=== PATIENT | female | born 1950 | race Caucasian/White ===

== ENCOUNTER 2018-04-10 11:19 | Emergency (ER) | payer OTHER ==
--- OUTSIDE RECORDS SUMMARY | 2018-04-10 11:21 | XMS REPORT | Summary of Care ---
:1950 Author Encounter HQ Naintenishar_iram(MARIA LUZ) [id number] Date(s): 04/17/14 - 04/17/14 [facility] Outpatient Imaging [address] Discharge Disposition: Home Physician Attending: Miguel A Orozco MD Reason for Visit V76.10 - SCRN MAL ALLI BR Problem List No data available for this section Allergies, Adverse Reactions, Alerts No data available for this section Medications No data available for this section Medications Administered During Your Visit No data available for this section Immunizations No data available for this section
--- OUTSIDE RECORDS SUMMARY | 2018-04-10 11:21 | XMS REPORT | Clinical Summary ---
:1950 Author Organization [facility] Address [address] [place] [address] Care Team Providers Name Role Phone Asked, No Pcp Primary Care Provider Unavailable Allergies No Known Allergies Current Medications Prescription Sig. Disp. Refills Start Date End Date Status sotalol (BETAPACE) 80 Take 80 mg by Active MG tablet mouth 2 (two) times a day. denosumab (PROLIA) 60 Inject 60 mg Active mg/mL syringe syringe under the skin every 6 (six) months. calcium carbonate Take 1,200 mg by Active (CALCIUM 600 ORAL) mouth daily. cholecalciferol, Take by mouth. Active vitamin D3, (VITAMIN D3) 5,000 unit tablet sucralfate (CARAFATE) Take 10 mL (1 g 1200 mL 0 12/08/2017 01/07/2018 100 mg/mL suspension total) by mouth 4 (four) times a day with meals and nightly for 30 days. colchicine 0.6 mg Take 0.5 tablets 30 tablet 0 12/08/2017 01/07/2018 tablet (0.3 mg total) by mouth 2 (two) times a day for 30 days. pantoprazole Take 1 tablet 60 tablet 0 12/08/2017 01/07/2018 (PROTONIX) 40 MG EC (40 mg total) by tablet mouth 2 (two) times a day for 30 days. rivaroxaban (XARELTO) Take 1 tablet 30 tablet 0 12/08/2017 01/07/2018 20 mg tablet (20 mg total) by mouth daily for 30 days. rivaroxaban (XARELTO) Take 1 tablet 30 tablet 0 12/09/2017 01/08/2018 20 mg tablet (20 mg total) by mouth daily for 30 days. Active Problems Problem Noted Date PAF (paroxysmal atrial fibrillation) 12/08/2017 Encounters Date Type Specialty Care Team Description 12/08/2017 - Hospital Encounter Cardiology Anoop Oakley MD PAF (paroxysmal 12/09/2017 atrial fibrillation) 12/08/2017 Anesthesia Event Procedural [facility] Myron Galeano MD 12/08/2017 Procedure Pass Procedural Cardiology 12/08/2017 Surgery Procedural Anoop Oakley MD Ep complete ep study Cardiology w ablation pulmonary vein [12134 (CPT)] after 04/09/2017 Family History Medical History Relation Name Comments Heart disease Father Rheumatic fever Father Relation Name Status Comments Father Social History Tobacco Use Types Packs/Day Years Used Date Never Smoker Smokeless Tobacco: Never Used Alcohol Use Drinks/Week oz/Week Comments Yes Rarely Sex Assigned at Date Recorded Not on file Last Filed Vital Signs Vital Sign Reading Time Taken Blood Pressure 91/54 12/09/2017 11:13 AM CDT Pulse 59 12/09/2017 11:13 AM CDT Temperature 36.6 C (97.8 F) 12/09/2017 11:13 AM CDT Respiratory Rate 17 12/09/2017 11:13 AM CDT Oxygen Saturation 92% 12/09/2017 11:13 AM CDT Inhaled Oxygen Concentration - - Weight 75.3 kg (166 lb 1.6 oz) 12/09/2017 4:31 AM CDT Height 172.7 cm (5' 8") 12/08/2017 10:45 AM CDT Body Mass Index 25.26 12/09/2017 4:31 AM CDT Plan of Treatment Not on file Procedures Procedure Name Priority Date/Time Associated Comments Diagnosis MAGNESIUM LEVEL Routine 12/09/2017 4:25 Results for this AM CDT procedure are in the results section. ESTIMATED GFR Routine 12/09/2017 4:25 Results for this AM CDT procedure are in the results section. BASIC METABOLIC PANEL Routine 12/09/2017 4:25 Results for this AM CDT procedure are in the results section. HC COMPLETE BLD COUNT Routine 12/09/2017 4:25 Results for this W/AUTO DIFF AM CDT procedure are in the results section. ESTIMATED GFR Routine 12/08/2017 9:04 Results for this PM CDT procedure are in the results section. BASIC METABOLIC PANEL Routine 12/08/2017 9:04 Results for this PM CDT procedure are in the results section. ECG 12-LEAD STAT 12/08/2017 8:07 Results for this PM CDT procedure are in the results section. EP COMPLETE EP STUDY Routine 12/08/2017 5:52 PAF (paroxysmal Results for this W ABLATION PULMONARY PM CDT atrial procedure are in VEIN fibrillation) the results section. ACTIVATED CLOTTING Routine 12/08/2017 5:46 Results for this TIME PM CDT procedure are in the results section. ACTIVATED CLOTTING Routine 12/08/2017 4:54 Results for this TIME PM CDT procedure are in the results section. ACTIVATED CLOTTING Routine 12/08/2017 4:07 Results for this TIME PM CDT procedure are in the results section. ACTIVATED CLOTTING Routine 12/08/2017 2:53 Results for this TIME PM CDT procedure are in the results section. ACTIVATED CLOTTING Routine 12/08/2017 2:22 Results for this TIME PM CDT procedure are in the results section. ACTIVATED CLOTTING Routine 12/08/2017 2:15 Results for this TIME PM CDT procedure are in the results section. [place] AN ELECTIVE Routine 12/08/2017 1:50 ENDOTRACHEAL AIRWAY PM CDT Procedure Note - Remedios Mora CRNA - 12/08/2017 1:50 PM CDT Airway Date/Time: 12/08/2017 1:40 PM Performed by: EDE WALDROP Authorized by: MYRON LYLES Location: school laboratory technician Urgency: Elective Difficult Airway: No Anesthesiologist: MYRON LYLES Resident/MANAGER MARKETING/AA: EDE WALDROP Performed by: resident/MANAGER MARKETING/AA Preoxygenated with 100% O2: Yes C-spine Precautions Maintained Throughout: Yes Mask Ventilation: Easy mask Final Airway Type: Endotracheal airway Final Endotracheal Airway: ETT Cuffed: Yes Technique Used: Direct laryngoscopy Devices/Methods Used in Placement: Intubating stylet Insertion Site: Oral Blade Type: Guan Laryngoscope Blade/Videolaryngoscope Blade Size: 2 ETT Size (mm): 7.0 Cuff at minimum occlusion pressure: Yes Measured from: Lips ETT to Lips (cm): 21 Placement Verified by: CO2 detection, direct visualization and equal breath sounds Laryngoscopic view: Grade I - full view of glottis Rapid Sequence Induction (RSI): No Modified RSI: No Number of Attempts at Approach: 1 Small lip lac with intubation. Pressure applied TYPE AND SCREEN STAT 12/08/2017 11:12 AM CDT ECG PRE/POST OP Routine 12/08/2017 10:46 AM CDT after 04/09/2017 Results Estimated GFR (12/09/2017 4:25 AM)Only the most recent of2 resultswithin the time period is included. GFR Non Af Amer 55 (A) mL/min/1.73 m2 [facility] DEPARTMENT OF PATHOLOGY AND GENOMIC MEDICINE GFR Af Amer 67 mL/min/1.73 m2 [facility] DEPARTMENT OF Comment: PATHOLOGY AND GENOMIC Chronic kidney disease: <60 mL/min/1.73m2 MEDICINE Kidney failure: <15 mL/min/1.73m2 The estimated GFR is calculated from the IDMS-traceable Modification of Diet in Renal Disease Equation. The accuracy of the calculation is poor when the creatinine is normal. Calculated values >90 mL/min/1.73m2 are not reported. This equation has not been validated in children (<18 years), women, the elderly (>70 years), or ethnic groups other than Caucasians and Americans. Specimen Plasma specimen Performing Organization Address City/State/Zipcode Phone Number [facility] DEPARTMENT OF PATHOLOGY AND [address] [place] [address] [facility] CBC with platelet and differential (12/09/2017 4:25 AM) WBC 5.59 4.50 - 11.00 k/uL [facility] DEPARTMENT OF PATHOLOGY AND GENOMIC MEDICINE RBC 3.50 (L) 4.20 - 5.50 m/uL [facility] DEPARTMENT OF PATHOLOGY AND GENOMIC MEDICINE HGB 11.0 (L) 12.0 - 16.0 g/dL [facility] DEPARTMENT OF PATHOLOGY AND GENOMIC MEDICINE HCT 33.0 (L) 37.0 - 47.0 % [facility] DEPARTMENT OF PATHOLOGY AND GENOMIC MEDICINE MCV 94.3 82.0 - 100.0 fL [facility] DEPARTMENT OF PATHOLOGY AND GENOMIC MEDICINE MCH 31.4 27.0 - 34.0 pg [facility] DEPARTMENT OF PATHOLOGY AND GENOMIC MEDICINE MCHC 33.3 31.0 - 37.0 g/dL [facility] DEPARTMENT OF PATHOLOGY AND GENOMIC MEDICINE RDW - SD 44.0 37.0 - 55.0 fL [facility] DEPARTMENT OF PATHOLOGY AND GENOMIC MEDICINE MPV 11.0 8.8 - 13.2 fL [facility] DEPARTMENT OF PATHOLOGY AND GENOMIC MEDICINE Platelet count 143 (L) 150 - 400 k/uL [facility] DEPARTMENT OF PATHOLOGY AND GENOMIC MEDICINE Nucleated RBC 0.00 /100 WBC [facility] DEPARTMENT OF PATHOLOGY AND GENOMIC MEDICINE Neutrophils 78.6 (H) 39.0 - 69.0 % [facility] DEPARTMENT OF PATHOLOGY AND GENOMIC MEDICINE Lymphocytes 13.6 (L) 25.0 - 45.0 % [facility] DEPARTMENT OF PATHOLOGY AND GENOMIC MEDICINE Monocytes 7.0 0.0 - 10.0 % [facility] DEPARTMENT OF PATHOLOGY AND GENOMIC MEDICINE Eosinophils 0.0 0.0 - 5.0 % [facility] DEPARTMENT OF PATHOLOGY AND GENOMIC MEDICINE Basophils 0.4 0.0 - 1.0 % [facility] DEPARTMENT OF PATHOLOGY AND GENOMIC MEDICINE Immature granulocytes 0.4Comment: 0.0 - 1.0 % [facility] DEPARTMENT OF "Immature PATHOLOGY AND GENOMIC granulocytes" MEDICINE (promyelocytes, myelocytes, metamyelocytes) Specimen Blood Performing Organization Address City/State/Zipcode Phone Number [facility] DEPARTMENT OF PATHOLOGY AND [address] [place] [phone] [facility] MEDICINE Magnesium level (12/09/2017 4:25 AM) Magnesium 1.5 (L) 1.6 - 2.4 mg/dL [facility] DEPARTMENT OF PATHOLOGY AND GENOMIC MEDICINE Specimen Plasma specimen Performing Organization Address City/[facility]/Zipcode Phone Number [facility] DEPARTMENT OF PATHOLOGY AND [address] [place] [id number] [facility] Basic metabolic panel (12/09/2017 4:25 AM)Only the most recent of2 resultswithin the time period is included. Sodium 139 135 - 148 mEq/L [facility] DEPARTMENT OF PATHOLOGY AND GENOMIC MEDICINE Potassium 4.1 3.5 - 5.0 mEq/L [facility] DEPARTMENT OF PATHOLOGY AND GENOMIC MEDICINE Chloride 103 98 - 112 mEq/L [facility] DEPARTMENT OF PATHOLOGY AND GENOMIC MEDICINE CO2 24 24 - 31 mEq/L [facility] DEPARTMENT OF PATHOLOGY AND GENOMIC MEDICINE Anion gap 12 7 - 15 mEq/L [facility] DEPARTMENT OF PATHOLOGY Comment: AND GENOMIC [facility] Starting from November , anion gap calculation no longer incorporates potassium. Please note the change. BUN 15 8 - 23 mg/dL [facility] DEPARTMENT OF PATHOLOGY AND GENOMIC MEDICINE Creatinine 1.0 (H) 0.5 - 0.9 mg/dL [facility] DEPARTMENT OF PATHOLOGY AND GENOMIC MEDICINE Glucose 97 65 - 99 mg/dL [facility] DEPARTMENT OF PATHOLOGY AND GENOMIC MEDICINE Calcium 8.3 (L) 8.8 - 10.2 mg/dL [facility] DEPARTMENT OF PATHOLOGY AND GENOMIC MEDICINE Specimen Plasma specimen Performing Organization Address City/[facility] Phone Number [facility] DEPARTMENT OF PATHOLOGY AND [address] [place] [address] [facility] MEDICINE ECG 12 lead (12/08/2017 8:07 PM) Ventricular rate 60 [facility] Atrial rate 59 [facility] QRSD interval 98 [facility] QT interval 494 [facility] QTC interval 494 [facility] QRS axis 1 7 [facility] T wave axis 258 [facility] EKG impression Sinus bradycardia with AV dissociation and Junctional rhythm- ST & T wave abnormality, consider inferior ischemia-ST & T wave abnormality, consider anterolateral ischemia-Prolonged QT-Abnormal ECG-In automated comparison with ECG of 08-DEC-2017 [facility] 10:46,-Junctional rhythm has replaced Sinus rhythm- Performing Organization Address [facility] Phone Number [facility] [address] [place] [address] Cv electrophysiology procedure (12/08/2017 5:52 PM) Impressions Performed At -Successful pulmonary veins isolation, posterior wall isolation, CTI [facility] ablation -Diffuse scarring seen in the anterior wall, probably related to prior MV surgery. RECOMMENDATIONS: 1- Monitor on telemetry overnight 2- Bedrest for 4 hours after sheaths removal 3- Restart Xarelto tonight 4- Continue sotalol 80mg PO BID Narrative Performed At DATE OF OPERATION: December 08, 2017 [facility] LINER REROLL TENDER: Anoop Oakley MD PREOPERATIVE DIAGNOSES: -Persistent atrial fibrillation -Severe MR s/p MVR -Severe osteoporosis POSTOPERATIVE DIAGNOSES: -Persistent atrial fibrillation -Severe MR s/p MVR -Severe osteoporosis PROCEDURES PERFORMED: -Ultrasound guided vascular access -Arterial line placement -Afib ablation with PVI and extrapulmonary ablation for PWI -CTI ablation -3D mapping -EP study -Stimulation after drug infusion -Intra cardiac echocardiography (ICE) -LV sensing and pacing COMPLICATIONS: None ESTIMATED BLOOD LOSS: <20cc HISTORY OF PRESENT ILLNESS: In brief, this is a 67 years old with past medical history as above, with symptomatic persistent atrial fibrillation refractory to anti-arrhythmics (sotalol) who presents today for atrial fibrillation ablation. PROCEDURE IN DETAIL: Consent was obtained from the patient after a full explanation of the risks and benefits of the procedure. The patient was brought to the electrophysiology lab in the fasting state. The patient was prepared and draped in a sterile fashion. General anesthesia with intratracheal ventilation administered by the anesthesia service was used for the procedure. Esophageal temperature monitoring was performed throughout the case using CIRCA catheter. Patient presented to the EP lab in sinus rhythm. Sheaths were placed using modified Seldinger technique. Three venous sheaths (8Fr, 8Fr and long 9Fr sheath) were placed in the right femoral vein using ultrasound guidance without complication. One 7-[place] venous sheath and one 4Fr arterial sheath were placed in the left femoral vein and artery respectively using ultrasound guidance without complication. Heparin bolus and gtt were given after obtaining vascular access. A intracardiac echocardiography catheter (ICE) was inserted via the 9Fr sheath and advanced into the right atrium and the right ventricle. At baseline, there was no pericardial effusion and normal EF. Using SOUND, the CTI, CS os, fossa, LPVs, RPVs were marked. The left atrium was noted to be moderately enlarged and measured at 5.4cm. The ICE catheter was later used to guide both transseptals and monitor for procedure complications. Next, the RFV 8Fr sheath was upgraded to a medium curl Agilis sheath, through which a SmartTouch SF catheter, DF curve was advanced to the RA, and a Fast Anatomic Map (FAM) was done for the IVC, RA septum, fossa and SVC. A decapolar diagnostic catheter was then advanced into the coronary sinus.After titrating heparin drip to achieve an ACT > 350 sec, transseptal puncture was performed with [place] long needle (requiring RF) using ICE guidance. Left (12 mmHg) atrial pressure was measured to assess intracardiac filling pressures.There were no complications.Following transseptal puncture, Agilis sheath was advanced into the LA, and the ablator was then exchanged to a DF Pentarray catheter. A detailed 3D electroanatomical and voltage map was created while in sinus rhythm in the left atrium using CARTO mapping system. During mapping with Pentarray, rhythm degenerated into afib. External cardioversion was performed however afib recurred shortly after with Pentarray mapping. Diffuse scarring was noted, especially anteriorly. After exchanging Pentarray to the ablation catheter, we proceeded to pulmonary veins isolation while in atrial fibrillation. The left pulmonary veins were circumferentially isolated as a common os using RF ablation. The right pulmonary veins were circumferentially isolated as a common os using RF ablation. Following ablation, a repeat cardioversion was performed at 150J and patient remained in NSR for the rest of the case. Veins were checked and additional lesions were needed on the LSPV posterior roof and RPV posterior dhaval to achieve isolation. Prior to ablation of right sided veins, pacing was performed and right phrenic nerve course was avoided (PN was captured and course avoided from RPVs).30-40 W for 30 sec and impedance drop of 10-15 ohms was targeted in the anterior sites. Posterior sites used 20 W for 8-15 sec.Exit and entrance block was confirmed at all 4 veins. At this time, I repeated voltage map of the LA with the Pentarray, which confirmed severe scarring of the anterior wall and some small, isolated areas of the posterior wall. We then proceeded to posterior wall isolation with roof and floor line between the 2 PVs. Additional lesions were needed in the right inferior posterior quadrant and roof to achieve isolation. There was entrance and exit block to the posterior wall with high output pacing.The left and right pulmonary veins were confirmed to remain isolated. Isuprel infusion up to 20mcg/min did not demonstrate reconnection nor a non-PV trigger.CS burst pacing from 250ms to 180msec during isuprel washout, no afib or organized AT/flutter was induced. Catheters were withdrawn into the RA and a CTI line was performed with bidirectional block confirmed. Transblock conduction time was 180 msec. At this time case was ended. HV interval was measured at 64msec and AH=73ms. VAWCL from the LV was 600ms. VA conduction was midline and decremental. Post-procedure ICE showed no pericardial effusion.At this time, GA was stopped and patient was extubated; No immediate complications. Protamine was given at the end of the procedure.Sheaths were pulled in the lab and patient was transferred to the PACU in a stable condition. Performing Organization Address City/State/Zipcode Phone Number [facility] [address] [place] [address] Activated clotting time (12/08/2017 5:46 PM)Only the most recent of6 resultswithin the time period is included. Activated clotting time 121 96 - 152 sec [facility] DEPARTMENT OF Comment: PATHOLOGY AND GENOMIC Meter ID: [id number] MEDICINE Dairy Manager: Charlee Tessy Performing Organization Address [facility] Phone Number [facility] DEPARTMENT OF PATHOLOGY AND [address] [place] [address] GENOMIC MEDICINE Type and screen (12/08/2017 11:12 AM) ABO grouping O [facility] DEPARTMENT OF PATHOLOGY AND GENOMIC MEDICINE Rh type POS [facility] DEPARTMENT OF PATHOLOGY AND GENOMIC MEDICINE Antibody screen (gel) NEG [facility] DEPARTMENT OF PATHOLOGY AND GENOMIC MEDICINE Specimen Blood Performing Organization Address [facility] Phone Number [facility] DEPARTMENT OF PATHOLOGY AND [address] [place] [address] [facility] MEDICINE ECG Pre/Post Op (12/08/2017 10:46 AM) Ventricular rate 53 [facility] Atrial rate 53 [facility] [place] interval 176 [facility] QRSD interval 100 [facility] QT interval 520 [facility] QTC interval 487 [facility] P axis 1 62 [facility] QRS axis 1 34 [facility] T wave axis 70 [facility] EKG impression Sinus bradycardia-T wave abnormality, consider anterolateral ischemia-Prolonged QT-Abnormal ECG-In automated comparison with ECG of 2017 10:44,-ST no longer depressed in Inferior leads- [facility] 12:03:49 PM Performing Organization Address [facility] Phone Number [facility] [address] [place] [address] after 04/09/2017 Insurance Payer Benefit Plan / Group Subscriber ID Type Phone Address AETNA AETNA PPO OPEN CHOICE xxxxxxxx PPO AETNA MEDICARE AETNA MEDICARE HMO/PPO [facility] xxxxxxxx HMO Home: [id number] [phone] [address]
--- OUTSIDE RECORDS SUMMARY | 2018-04-10 11:21 | XMS REPORT | Continuity of Care Document ---
:1950 Author Organization Interface Problems Problem Status Onset Classification Date Comments Source Date Reported Age-related 11/29/19 02/26/2018 [facility] osteoporosis 18 [place] without current pathological fracture M81.0 - Active 11/09/19 [facility] AGE-RELATED 18 [place] OSTEOPOROSIS W/O C PROLIA INJECT Active 03/14/20 [facility] 60 MG / 17 [id number] / CPT= Other specified 02/26/2018 [facility] disorders of [place] bone density and structure, multiple sites Osteoporosis Resolved Problem 02/26/2018 [facility] [place] Osteoporosis Resolved Problem 01/16/2018 [facility] Medications Medication Details Route Status Patient Ordering Order Source Instructions Provider Date Calcium 500+D 1 tab, CHEW, Active oral tablet, BID chewable denosumab 60 mg, 1 mL, Inactive Route: SUB-Q, 017 Drug form: SOLN, ONCALL, Start date: 03/24/17 9:00:00 CDT, Duration: 12 hr, Stop date: 03/24/17 20:59:00 CDTNotes: Same as: Prolia Non Formulary MEDICATION WASTE Product Size: 60 mg Product Wasted: ___ mg Allergies, Adverse Reactions, Alerts Substance Category Reaction Severity Reaction Status Date Comments Source type Reported NKDA<sup>1< Assertion Drug Active Data /sup> allergy 4 migrated [place] from [employer] on 10/13/15. Originally documented as NKA. Immunizations Immunization Date Site Status Last Comments Source Given Updated diphtheria/pertu completed GE Result ssis, 3 Comment: [facility] acel/tetanus tdap. OP[facility] adult<sup>1</sup Migrated from [place] > OBS ; Data migrated from [employer] on 09/21/2015. diphtheria/pertu completed GE Result ssis, 3 Comment: [place] acel/tetanus tdap. Medical adult<sup>1</sup Migrated from Group > OBS ; Data migrated from [employer] on 09/21/2015. tetanus-diphther Left completed GE Result [place] 3 Deltoid Comment: toxoids<sup>3</s tdap. up> Migrated from OBS ; Data migrated from [employer] on 09/21/2015. tetanus-diphther Left completed [facility]: YURIY [place] toxoids<sup>2</s tdap. Medical up> Migrated from Group OBS ; Data migrated from [employer] on 09/21/2015. pneumococcal Right completed GE Result [facility] 23-valent 3 Deltoid Comment: vaccine<sup>2</s pneumovax. up> Migrated from OBS ; Data migrated from [employer] on 09/21/2015. pneumococcal Right completed GE Result [facility] 23-valent 3 Deltoid Comment: Adalberto vaccine<sup>3</s pneumovax. Medical up> Migrated from Group OBS ; Data migrated from [employer] on 09/21/2015. Results Order Results Value Reference Date Interpretation Comments Source Name Range Bone Bone 11/20 - [facility] Density Density /2017 - [place] DXA Dual DXA Dual Energy MA Energy MA BONE DENSITY ASSESSMENT: 11/20/2017 Read by: Grady Landon MD Dictated Date/time: 11/21/17 06:33 Electronically Signed by: Grady Landon MD 11/21/17 06:33 FINAL REPORT CLINICAL DATA: Post menopausal. M81.0 Age related osteoporosis without current pathological fracture. /M81.0 Age-Related Osteoporosis Without Current Pathological Fracture RISK FACTORS: race. FINDINGS: Bone density evaluation was performed 11/20/2017 on the right femur neck using a Hologic unit. The BMD average for the exam is 0.599 g/cm2. The T-score is -2.30 and the Z-score is -0.60. This matches the World Health Organization's criteria for osteopenia and places the patient at a medium risk for fracture. An additional bone density evaluation was performed 11/20/2017 on the left femur neck using a Hologic unit. The BMD average for the exam is 0.615 g/cm2. The T-score is -2.10 and the Z-score is -0.50. This matches the World Health Organization's criteria for osteopenia and places the patient at a medium risk for fracture. An additional bone density evaluation was performed 11/20/2017 on the right total femur area using a Hologic unit. The BMD average for the exam is 0.804 g/cm2. The T-score is -1.10 and the Z-score is 0 .20. This matches the World Health Organization's criteria for osteopenia and places the patient at a medium risk for fracture. An additional bone density evaluation was performed 11/20/2017 on the left total femur area using a Hologic unit. The BMD average for the exam is 0.780 g/ cm2. The T-score is -1.30. This matches the Wo rld Health Organization's criteria for osteopenia and places the patient at a medium risk for fracture. An additional bone density evaluation was performed 11/20/2017 on the AP L1 -L4 region of spine using a Hologic unit. The BMD average for the exam is 0.856 g/cm2. The T-score is -1.70 and the Z-score is 0.20. This matches the World Health Organization's criteria for osteopenia and places the patient at a medium risk for fracture. FRAX 10 year probability of major osteoporotic fracture is 13% and hip fracture is 2.5%. IMPRESSION: OSTEOPENIA Patient is at medium risk for fracture. This exam was interpreted at [id number] at [facility]. Grady Landon M.D., jp/baylee:11/21/2017 06:33:33 Tooth Grinder(s): Chelsea Davila [facility] Bone Bone - Bone Density DXA Dual Energy MA 05/25 - [facility] Density Density /2014 - [place] DXA Dual DXA Dual BONE DENSITY EVALUATION: 05/25/2015 Energy MA Energy MA Read by: Efern Lo MD Dictated Date/time: 05/26/15 12:38 CLINICAL DATA: Post menopausal. Electronically Signed by: Efren Lo MD 05/26/15 12:38 FINAL REPORT RISK FACTORS: race. COMPARISON: 10/11/2012 Left total femur area using a Hologic unit from [facility] [place] with reported medium fracture risk, BMD of 0.699g/cm2, T-score of -2.00, Z-score of -0.90 and 86.0% age-match bone mineralization. 10/11/2012 Left femur neck using a Hologic unit from [facility] with reported high fracture risk, BMD of 0.563g/cm2, T-score of -2.60, Z-score of -1.20 and 81.0% age-match bone mineralization. 10/11/2012 AP L1-L4 region of spine using a Hologic unit from [facility] with reported medium fracture risk, BMD of 0.796g/cm2, T-score of -2.30, Z-score of -0.70 and 91.0% age-match bone mineralization. FINDINGS: Bone density evaluation was performed 05/25/2015 on the AP L1-L4 region of spine using a Hologic unit. The BMD average for the exam is 0.811 g/cm2. The T- score is -2.10 and the Z-score is -0.40. These values indicate 95.0% for age-matched controls. Since the previous similar exam of 10/11/2012, there has been a +0.015 or +1.9% change in the BMD value which represents no significant interval change in bone density. This matches the World Health Organization's criteria for osteopenia and places the patient at a medium risk for fracture. An additional bone density evaluation was performed 05/25/2015 on the right femur neck using a Hologic unit. The BMD average for the exam is 0.598 g/ cm2. The T-score is -2.30 and the Z-score is -0.70. These values indicate 88.0% for age-matched controls. This matches the World Health Organization's criteria for osteopenia and places the patient at a medium risk for fracture. An additional bone density evaluation was performed 05/25/2015 on the right total femur area using a Hologic unit. The BMD average for the exam is 0.765 g/cm2. The T-score is -1.40 and the Z-score is - 0.20. These values indicate 97.0% for age-matched controls. This matches the World Health Organization's criteria for osteopenia and places the patient at a medium risk for fracture. An additional bone density evaluation was performed 05/25/2015 on the left femur neck using a Hologic unit. The BMD average for the exam is 0.575 g/cm2. The T-score is -2.50 and the Z-score is -0.90. These values indicate 85.0% for age-matched controls. Since the previous similar exam of 10/11/2012, there has been a +0.012 or +2.1% change in the BMD value which represents no significant interval c hange in bone density. This matches the World Health Organization's criteria for osteoporosis and places the patient at a high risk for fracture. An additional bone density evaluation was performed 05/25/2015 on the left total femur area using a Hologic unit. The BMD average for the exam is 0.702 g/ cm2. The T-score is -2.00 and the Z-score is -0 .70. These values indicate 89.0% for age-matched controls. Since the previous similar exam of 10/11/2012, there has been a +0.003 or +0.4% change in the BMD value which represents no significant inte rval change in bone density. This matches the World Health Organization's criteria for osteopenia and places the patient at a medium risk for fracture. IMPRESSION: OSTEOPOROSIS Patient is at high risk for fracture. This exam was dictated and interpreted by [id number] for MICHELLE Phillips. Smith Del Toro M.D., cm/baylee:05/26/2015 12:38:20 Tooth Grinder: Bertha Mora [facility] Vital Signs Vital Sign Value Date Comments Source Respitory Rate 18 03/24/2017 [facility] Heart Rate 60 03/24/2017 [facility] Temperature Oral (F) 97.9 F 03/24/2017 [facility] Systolic (mm Hg) 105 03/24/2017 [facility] Diastolic (mm Hg) 66 03/24/2017 [facility] Weight 74.09 03/23/2017 [facility] BMI Calculated 25.94 03/23/2017 [facility] Height 169 cm 03/23/2017 [facility] Encounters Location Location Encounter Encounter Reason Attending ADM DC Status Source Details Type Number For Provider Date Date Visit [facility] Outpt Diag [id number] Miguel A 04/17 04/18 [facility] [place] /2013 [facility] Outpt Diag [id number] Miguel A 05/25 05/26 [facility] Outpatient Services Callum Mendieta /2014 [facility] [id number] Kamari 03/24 04/23 YURIY Fields /2016 [facility] Outpt Diag [id number] Cecilia 11/20 11/21 [facility] Outpatient Services Roderick /2017 [facility] Outside [id number] 01/12 01/14 Primary Medical /2017 [facility] Procedures Procedure Code Date Perfomer Comments Source
--- OUTSIDE RECORDS SUMMARY | 2018-04-10 11:21 | XMS REPORT | Summary of Care ---
:1950 Author Organization [facility] Outpatient Imaging [place] Address [facility] [place], [place] [address]- Encounter HQ Encntr_alias(FIN) [id number] Date(s): 05/25/15 - 05/25/15 [facility] Outpatient Imaging [address] [address]- [phone] Discharge Disposition: Home Attending Physician: Miguel A Orozco MD Vital Signs No data available for this section Problem List No data available for this section Allergies, Adverse Reactions, Alerts No data available for this section Medications No data available for this section Results No data available for this section Immunizations No data available for this section Procedures No data available for this section Social History No data available for this section Assessment and Plan No data available for this section
--- OUTSIDE RECORDS SUMMARY | 2018-04-10 11:22 | XMS REPORT ---
:1950 Author Organization [employer] Care Team Providers Name Role Phone Steven Parekh Provider Role Unavailable Allergies No Known Allergies Problems Problem Type Condition Code Onset Dates Condition Status Problem Heart valve disorder I38 Active Problem Breast implant status Z98.82 Active Assessment Strain of neck muscle, initial S16.1XXA Active encounter Medications Medication Code Code Instructions Start End Status Dosage System Date Date Diclofenac ND 22941231666 50 MG Orally February 26, Mar 28, Active 1 tablet Sodium Twice a day 2017 2017 with food or milk Sotalol HCl NDC 62773213777 80 MG Orally Active 1 tablet every 12 hrs Prolia ND 60017632159 60 MG/ML Active not Subcutaneous defined Results No Known Results Summary Purpose [employer]ClinicalWorks Submission
--- OUTSIDE RECORDS SUMMARY | 2018-04-10 11:22 | XMS REPORT | Summary of Care ---
:1950 Author Organization [facility] Address [address] [facility], [address] [address]- Encounter HQ Nainntr_iram(FIN) [id number] Date(s): 01/12/18 - 01/13/18 [facility] [address] [facility], [address] [address]- [phone] Vital Signs No data available for this section Problem List Condition Effective Dates Status Health Status Informant Osteoporosis(Confirmed) Resolved Allergies, Adverse Reactions, Alerts Substance Reaction Severity Status NKDA1 Active 1Data migrated from [employer] on 10/13/15. Originally documented as NKA. Medications No data available for this section Results No data available for this section Immunizations Given and Recorded Vaccine Date Status Refusal Reason diphtheria/pertussis, acel/tetanus adult1 09/18/12 Given tetanus-diphtheria toxoids2 09/18/12 Given pneumococcal 23-valent vaccine3 09/18/12 Given 1Result Comment: tdap. Migrated from OBS ; Data migrated from [employer] on 09/21/2015.2Result Comment: tdap. Migrated from OBS ; Data migrated from [employer] on 09/21/2015.3Result Comment: pneumovax. Migrated from OBS ; Data migrated from [employer] on 09/21/2015. Procedures No data available for this section Social History Social History Type Response Smoking Status Unknown if ever smoked; Exposure to Tobacco Smoke Unable to obtain; Cigarette Smoking Last 365 Days No; Reg Smoking Cessation Counseling No entered on: 03/24/17 Assessment and Plan No data available for this section
--- OUTSIDE RECORDS SUMMARY | 2018-04-10 11:22 | XMS REPORT ---
:1950 Author Organization eClinicalWorks Care Team Providers Name Role Phone Yissel Parker Provider Role Unavailable Allergies No Known Allergies Problems Problem Type Condition Code Onset Dates Condition Status Problem Heart valve disorder I38 Active Problem Breast implant status Z98.82 Active Medications No Known Medications Results No Known Results Summary Purpose eClinicalWorks Submission
--- OUTSIDE RECORDS SUMMARY | 2018-04-10 11:22 | XMS REPORT | Summary of Care ---
:1950 Author Organization [facility] Outpatient Imaging [place] Address [address] [place], [place] [address]- Encounter HQ Encntr_alias(FIN) [id number] Date(s): 11/20/17 - 11/20/17 [facility] Outpatient Imaging [address], [address] [place] [address]- [phone] Encounter Diagnosis Age-related osteoporosis without current pathological fracture (Final) - 11/27/17 Other specified disorders of bone density and structure, multiple sites (Final) - Discharge Disposition: Home or Self Care Attending Physician: Cecilia Vaughn DO Vital Signs No data available for this section Problem List Condition Effective Dates Status Health Status Informant Osteoporosis(Confirmed) Resolved Allergies, Adverse Reactions, Alerts Substance Reaction Severity Status NKDA1 Active 1Data migrated from [employer] on 10/13/15. Originally documented as NKA. Medications No data available for this section Results No data available for this section Immunizations Given and Recorded Vaccine Date Status Refusal Reason diphtheria/pertussis, acel/tetanus adult1 09/18/12 Given tetanus-diphtheria toxoids2 09/18/12 Given pneumococcal 23-valent vaccine3 09/18/12 Given 1Result Comment: tdap. Migrated from OBS ; Data migrated from [employer] on 09/21/2015.2Result Comment: tdap. Migrated from OBS ; Data migrated from [employer] on 09/21/2015.3Result Comment: pneumovax. Migrated from OBS ; Data migrated from [employer] on 09/21/2015. Procedures No data available for this section Social History Social History Type Response Smoking Status Unknown if ever smoked; Exposure to Tobacco Smoke Unable to obtain; Cigarette Smoking Last 365 Days No; Reg Smoking Cessation Counseling No entered on: 03/24/17 Assessment and Plan No data available for this section
--- OUTSIDE RECORDS SUMMARY | 2018-04-10 11:22 | XMS REPORT ---
:1950 Author Organization eClinicalWorks Care Team Providers Name Role Phone [place] Yissel Provider Role Unavailable Allergies, Adverse Reactions, Alerts Substance Reaction Event Type N.K.D.A. Info Not Available Non Drug Allergy Problems Problem Type Condition Code Onset Dates Condition Status Problem Heart valve disorder I38 Active Assessment Encounter for gynecological Z01.419 Active examination without abnormal finding Problem Breast implant status Z98.82 Active Assessment Encounter for screening mammogram Z12.31 Active for breast cancer Assessment Breast implant status Z98.82 Active Medications Medication Code Code Instructions Start End Date Status Dosage System Date Sotalol HCl ND 97112851366 80 MG Orally Active 1 tablet every 12 hrs Prolia ND 49869600599 60 MG/ML Active not defined Subcutaneous Results Name Result Date Reference Range Unit Abnormality Flag OCCULT (Guiac) BLOOD (ONE SPECIMEN) ----Occult Blood Neg [id number] ----Occult Blood QC Neg [id number] Summary Purpose [employer] Submission
--- OUTSIDE RECORDS SUMMARY | 2018-04-10 11:22 | XMS REPORT | Summary of Care ---
:1950 Author Organization [facility] Address [address] [place], [place] [address]- Encounter HQ Farooq_iram(MARIA LUZ) [id number] Date(s): 03/24/17 - 04/22/17 [facility] [address] [place] [address]- Discharge Disposition: Home or Self Care Attending Physician: Cecilia Vaughn DO Referring Physician: Kamari Fields MD Vital Signs Most recent to oldest [Reference Range]: 1 Height 169 cm (03/23/17 3:30 PM) Temperature Oral [96.4-99.1 DegF] 97.9 DegF (03/24/17 11:08 AM) Blood Pressure [90-140/60-90 mmHg] 105/66 mmHg (03/24/17 11:08 AM) Respiratory Rate [14-20 BRMIN] 18 BRMIN (03/24/17 11:08 AM) Peripheral Pulse Rate [60-100 bpm] 60 bpm (03/24/17 11:08 AM) Weight 74.09 kg (03/23/17 3:30 PM) Body Mass Index 25.94 m2 (03/23/17 3:30 PM) Problem List Condition Effective Dates Status Health Status Informant Osteoporosis(Confirmed) Resolved Allergies, Adverse Reactions, Alerts Substance Reaction Severity Status NKDA1 Active 1Data migrated from [employer] on 10/13/15. Originally documented as NKA. Medications Calcium 500+D oral tablet, chewable 1 tab, CHEW, BID Start Date: 03/24/17 Status: Ordereddenosumab 60 mg, 1 mL, Route: SUB-Q, Drug form: SOLN, ONCALL, Start date: 03/24/17 9:00: 00 CDT, Duration: 12 hr, Stop date: 03/24/17 20:59:00 CDT Notes: Same as: ProliaNon Formulary MEDICATION WASTE Product Size: 60 mgProduct Wasted: ___ mg Start Date: 03/24/17 Stop Date: 03/24/17 Status: Completed Results No data available for this section Immunizations Given and Recorded Vaccine Date Status Refusal Reason diphtheria/pertussis, acel/tetanus adult1 09/18/12 Given pneumococcal 23-valent vaccine2 09/18/12 Given tetanus-diphtheria toxoids3 09/18/12 Given 1Result Comment: tdap. Migrated from OBS ; Data migrated from [employer] on 09/21/2015.2Result Comment: pneumovax. Migrated from OBS ; Data migrated from [employer] on 09/21/2015.3Result Comment: tdap. Migrated from OBS ; Data migrated from [employer] on 09/21/2015. Procedures No data available for this section Social History Social History Type Response Smoking Status Unknown if ever smoked; Exposure to Tobacco Smoke Unable to obtain; Cigarette Smoking Last 365 Days No; Reg Smoking Cessation Counseling No Assessment and Plan No data available for this section
--- NOTE | 2018-04-10 12:06 | RAD REPORT ---
EXAM DESCRIPTION: RAD - Foot Right 3 View - 04/10/2018 11:54 am CLINICAL HISTORY: PAIN COMPARISON: No comparisons FINDINGS: Nondisplaced transverse fracture seen at the base of the fifth metatarsal. No dislocation seen. Small plantar calcaneal spur.
--- NOTE | 2018-04-10 12:13 | ER ---
Nurse's Notes [facility] Name: Sydnie Zuniga Age: 68 yrs Sex: Female : 1950 Arrival Date: 04/10/2018 Time: : Bed 10 Private MD: JOSÉ MIGUEL ABARCA Diagnosis: Non-displaced fracture of base of right 5th metatarsal Presentation: 04/10 11:26 Presenting complaint: Patient states: " I was stepping to get into the car and when I ph bent my R foot I got a very sharp pain in the top of it." Pt reports pain in top of foot near 4 and 5th digits, no bruising or swelling noted. Pt ambulated to triage. Transition of care: patient was not received from another setting of care. Onset of symptoms was April 10, 2018. Risk Assessment: Do you want to hurt yourself or someone else? Patient reports no desire to harm self or others. Initial Sepsis Screen: Does the patient meet any 2 criteria? No. Patient's initial sepsis screen is negative. Does the patient have a suspected source of infection? No. Patient's initial sepsis screen is negative. Care prior to arrival: None. 11:26 Method Of Arrival: Ambulatory ph 11:26 Acuity: ALEXANDRU 4 ph Historical: - Allergies: 11:29 No Known Allergies; ph - Home Meds: 11:29 Xarelto oral oral [Active]; Calcium Carbonate Oral [Active]; Vitamin D Oral [Active]; ph - PMHx: 11:29 mitral valve prolapse; Atrial Fib; ph - PSHx: 11:29 valve repair 2011; cardiac ablation; ph - Immunization history:: Adult Immunizations unknown. - Social history:: Smoking status: Patient/guardian denies using tobacco. - Ebola Screening: : No symptoms or risks identified at this time. - Family history:: not pertinent. - Hospitalizations: : No recent hospitalization is reported. Screenin:33 Abuse screen: Denies threats or abuse. Denies injuries from another. Nutritional ph screening: No deficits noted. Tuberculosis screening: No symptoms or risk factors identified. Fall Risk None identified. Assessment: 11:32 General: Appears in no apparent distress. comfortable, slender, well groomed, Behavior ph is calm, cooperative, appropriate for age. Pain: Complains of pain in dorsum of right foot, right fourth toe and right fifth toe. Neuro: Level of Consciousness is awake, alert, obeys commands, Oriented to person, place, time, situation. Cardiovascular: Capillary refill < 3 seconds Patient's skin is warm and dry. Pulses are palpable in right dorsalis pedis artery and left dorsalis pedis artery. Respiratory: Airway is patent Respiratory effort is even, unlabored. GI: No signs and/or symptoms were reported involving the gastrointestinal system. Derm: Skin is intact, is healthy with good turgor, Skin is pink, warm \\T\\ dry. Musculoskeletal: Circulation, motion, and sensation intact. Range of motion: intact in all extremities, Swelling absent. Vital Signs: 11:29 BP 119 / 72; Pulse 59; Resp 18; Temp 97.4; Pulse Ox 100% ; Weight 72.57 kg; Height 5 ph ft. 8 in. (172.72 cm); Pain 6/10; 11:29 Body Mass Index 24.33 (72.57 kg, 172.72 cm) ph ED Course: 11:21 Patient arrived in ED. sb2 11:22 JOSÉ MIGUEL ABARCA is Private Physician. sb2 11:28 Triage completed. ph 11:30 Arm band placed on. ph 11:32 Rusty Vail MD is Attending Physician. rn 11:32 Heidi Webb RN is Primary Nurse. ph 11:33 Patient has correct armband on for positive identification. Call light in reach. Side ph rails up X 1. 11:33 No provider procedures requiring assistance completed. Patient did not have IV access ph during this emergency room visit. 11:51 X-ray completed. Portable x-ray completed in exam room. Patient tolerated procedure sw well. 11:51 XRAY Foot RIGHT 3 View In Process Unspecified. EDMS 12:12 Avery Nuñez MD is Referral Physician. rn 12:48 Ortho shoe applied to right foot. ss Administered Medications: No medications were administered Outcome: 12:13 Discharge ordered by . rn 12:48 Discharged to home ambulatory, with family. ss 12:48 Condition: good 12:48 Discharge instructions given to patient, family, Instructed on discharge instructions, follow up and referral plans. Demonstrated understanding of instructions, follow-up care. 12:48 Patient left the ED. ss Signatures: Dispatcher [employer] EDMS Rusty Vail MD MD rn Smirch, Shelby, RN RN ss Hall, Patricia, RN RN ph Victor M, Jenny Lelia, Vilma sb2
--- NOTE | 2018-04-10 12:13 | EDPHYS ---
Physician Documentation [facility] Name: Sydnie Zuniga Age: 68 yrs Sex: Female : 1950 Arrival Date: 04/10/2018 Time: 11:21 Bed 10 Private MD: JOSÉ MIGUEL ABARCA ED Physician Rusty Vail HPI: 04/10 12:09 This 68 yrs old Female presents to ER via Ambulatory with complaints of Foot rn Injury. 12:09 The patient presents with pain, that is acute. The complaints affect the right foot. rn Onset: The symptoms/episode began/occurred just prior to arrival. Modifying factors: The symptoms are alleviated by nothing, the symptoms are aggravated by weight bearing, movement. Severity of symptoms: At their worst the symptoms were mild, in the emergency department the symptoms are unchanged. The patient has not experienced similar symptoms in the past. REports right foot pain after stepping, has been having pain there for a week or so, mild swelling. . Historical: - Allergies: 11:29 No Known Allergies; ph - Home Meds: 11:29 Xarelto oral oral [Active]; Calcium Carbonate Oral [Active]; Vitamin D Oral [Active]; ph - PMHx: 11:29 mitral valve prolapse; Atrial Fib; ph - PSHx: 11:29 valve repair 2011; cardiac ablation; ph - Immunization history:: Adult Immunizations unknown. - Social history:: Smoking status: Patient/guardian denies using tobacco. - Ebola Screening: : No symptoms or risks identified at this time. - Family history:: not pertinent. - Hospitalizations: : No recent hospitalization is reported. ROS: 12:09 MS/extremity: Positive for pain, swelling, Negative for paresthesias, puncture, warmth. rn Exam: 12:09 Constitutional: This is a well developed, well nourished patient who is awake, alert, rn and in no acute distress. MS/ Extremity: Pulses equal, no cyanosis. Neurovascular intact. Full, normal range of motion. + tenderness along base of 5th metatarsal of right foot Vital Signs: 11:29 BP 119 / 72; Pulse 59; Resp 18; Temp 97.4; Pulse Ox 100% ; Weight 72.57 kg; Height 5 ph ft. 8 in. (172.72 cm); Pain 6/10; 11:29 Body Mass Index 24.33 (72.57 kg, 172.72 cm) ph MDM: 11:32 Patient medically screened. rn 12:09 Differential diagnosis: fracture, sprain. Data reviewed: vital signs, nurses notes, rn radiologic studies, plain films, and as a result, I will discharge patient. Counseling: I had a detailed discussion with the patient and/or guardian regarding: the historical points, exam findings, and any diagnostic results supporting the discharge/admit diagnosis, radiology results, the need for outpatient follow up, to return to the emergency department if symptoms worsen or persist or if there are any questions or concerns that arise at home. Response to treatment: the patient's symptoms have mildly improved after treatment, and as a result, I will discharge patient. Special discussion: I discussed with the patient/guardian in detail that at this point there is no indication for admission to the hospital. It is understood, however, that if the symptoms persist or worsen the patient needs to return immediately for re-evaluation. Based on the history and exam findings, there is no indication for further emergent testing or inpatient evaluation. I discussed with the patient/guardian the need to see the orthopedic surgeon for further evaluation of the symptoms. 04/10 11:32 Order name: XRAY Foot RIGHT 3 View; Complete Time: 12:08 rn 04/10 12:03 Order name: Splint: fracture shoe; Complete Time: 12:48 rn Administered Medications: No medications were administered Disposition: 04/10/18 12:13 Discharged to Home. Impression: Non-displaced fracture of base of right 5th metatarsal. - Condition is Stable. - Discharge Instructions: Metatarsal Fracture. - Medication Reconciliation Form, Thank You Letter, Antibiotic Education, Prescription Opioid Use form. - Follow up: Avery Nuñez MD; When: 5 - 6 days; Reason: Recheck today's complaints, Re-evaluation by your physician. - Problem is new. - Symptoms have improved. Signatures: Dispatcher [employer] EDMS Rusty Vail MD MD rn Smirch, Shelby, RN RN ss Hall, Patricia, RN RN ph Corrections: (The following items were deleted from the chart) 12:48 12:13 04/10/2018 12:13 Discharged to Home. Impression: Non-displaced fracture of base ss of right 5th metatarsal. Condition is Stable. Forms are Medication Reconciliation Form, Thank You Letter, Antibiotic Education, Prescription Opioid Use. Follow up: Avery Nuñez; When: 5 - 6 days; Reason: Recheck today's complaints, Re-evaluation by your physician. Problem is new. Symptoms have improved. rn
== END 2018-04-10 12:48 | disposition home or self-care (01) ==
LOC: ER 11:19
DX: S92.354A Nondisplaced fracture of fifth metatarsal bone, right foot, initial encounter for closed fracture (principal); X58.XXXA Exposure to other specified factors, initial encounter; Y93.9 Activity, unspecified; Y92.9 Unspecified place or not applicable; Z79.01 Long term (current) use of anticoagulants; I48.91 Unspecified atrial fibrillation; I34.1 Nonrheumatic mitral (valve) prolapse
CPT/HCPCS: 99283

== ENCOUNTER 2022-03-22 10:59 | Emergency (ER) | payer OTHER ==
--- OUTSIDE RECORDS SUMMARY | 2022-03-22 11:35 | XMS REPORT | Continuity of Care Document ---
:1950 Author Organization [facility] t Address [address] [place] [address] Care Team Providers Name Role Phone Elena Miranda Attending Clinician Unavailable GREY ECHAVARRIA Attending Clinician Unavailable MD GREY ECHAVARRIA Attending Clinician Unavailable MD CABRERA LUNDBERG Attending Clinician Unavailable CABRERA LUNDBERG Attending Clinician Unavailable Radiology Attending Clinician Unavailable RADIOLOGY Attending Clinician Unavailable Doctor Unassigned, [place] Attending Clinician Unavailable CABRERA LUNDBERG Admitting Clinician Unavailable MD CABRERA LUNDBERG Admitting Clinician Unavailable Payers Payer Name Policy Type Policy Number Effective Date Expiration Date S ource Problems This patient has no known problems. Allergies, Adverse Reactions, Alerts Allergy Allergy Status Severity Reaction(s) Onset Inactive Treating Comm ents Source Name Type Date Date Clinician NO KNOWN Drug Active Univers ALLERGIE Class ity of S [facility] Social History Social Habit Start Date Stop Date Quantity Comments Source Sex Assigned At Universit y of [facility] Exposure to Not sure [facility] SARS-CoV-2 [place] [facility] (event) Branch Tobacco use and 2018-06-14 2018-06-14 Never used Universit y of exposure 00:00:00 00:00:00 [facility] Alcohol intake 2018-06-14 2018-06-14 Current University 00:00:00 00:00:00 non-drinker of [facility] alcohol [place] (finding) Smoking Status Start Date Stop Date Source Never smoker [facility] Medications Ordered Filled Start Stop Current Ordering Indication Dosage Frequency Signature Comments Components Source Medication Medication Date Date Medication? Clinician (SIG) Name Name Trazodone Trazodone Yes Miranda 1 tablet Common HCl HCl 1-30 [place] at bedtime Spirit 00:00: as needed - [address] calcium Yes 1200mg Take 1,200 Un puneet carbonate 8-30 mg by ity of 600 mg 17:56: mouth. [place] calcium 34 Medical (1,500 mg) Branch tablet Cholecalcif Yes Take by Uni vers joan, 8-30 mouth. ity of Vitamin D3, 17:56: [place] 5,000 unit 34 Medical tablet Branch denosumab Yes 60mg inject 60 Uni vers 60 mg/mL 8-30 mg under ity of injection 17:56: the skin. [place] as 34 Medical Branch calcium Yes 1200mg Take 1,200 Un puneet carbonate 8-30 mg by ity of 600 mg 17:56: mouth. [place] calcium 34 Medical (1,500 mg) Branch tablet Cholecalcif Yes Take by Uni vers joan, 8-30 mouth. ity of Vitamin D3, 17:56: [place] 5,000 unit 34 Medical tablet Branch denosumab Yes 60mg inject 60 Uni vers 60 mg/mL 8-30 mg under ity of injection 17:56: the skin. [place] as 34 Medical Branch XARELTO 20 Yes Univers mg tablet 8-06 ity of 00:00: [address] XARELTO 20 Yes Univers mg tablet 8 ity of 00:00: [address] Vitamin E Vitamin E Yes Miranda 5 capsule Common [place] [facility] Sotalol HCl Sotalol HCl Yes Miranda 1 tablet Common [place] [facility] Prolia Prolia Yes Miranda not Common [place] defined [facility] Calcium Calcium Yes Miranda 1200mg Common [place] [facility] Diclofenac Diclofenac Yes Miranda 1 tablet Common Sodium Sodium [place] with food Spiri t or milk [facility] Procedures Procedure Date / Time Performed Performing Clinician Sourc e CT HEAD WO CONTRAST 2020-07-22 18:47:00 Vinny Braga [facility] ASSIGNMENT OF BENEFITS 2020-07-22 18:33:47 Doctor Unassigned, No [facility] Branch Encounters Start End Encounter Admission Attending Care Care Encounter Source Date/Time Date/Time Type Type Clinicians Facility Department ID 2022-03-17 Outpatient [place], STLMLC STLMLC [id number] Common 13:52:00 Miranda [id number] [facility] 2021-12-17 Outpatient [place], STLMLC STLMLC [id number] Common 14:45:01 Miranda [facility] 2021-09-15 Outpatient [place], STLMLC STLMLC [id number] Common 12:07:00 Miranda [id number] [facility] 2021-09-15 Outpatient [place], STLMLC STLMLC [id number] Common 12:06:37 Miranda [id number] [facility] 2021-09-15 Outpatient [place], STLMLC STLMLC [id number] Common 11:41:39 Miranda [id number] [facility] 2021-09-15 Outpatient [place], STLMLC STLMLC [id number] Common 11:04:05 Miranda [id number] [facility] 2021-09-15 Outpatient [place], STLMLC STLMLC [id number] Common 11:03:54 Miranda [id number] [facility] 2021-02-02 2021-02-23 Inpatient JERICHO, [facility] [id number] [place] 00:00:00 00:00:00 GREY [address] 2021-01-29 2021-01-29 Outpatient TAMIKACABRERA [facility] [id number] [place] 00:00:00 00:00:[address] 2020-07-22 2020-07-22 [facility] Radiology HIMB [id number] 12:37:36 23:59:00 Encounter W[place] [id number] [place] [id number] [place] [id number] [facility] 2020-07-22 2020-07-22 [facility] Radiology HIMB [id number] [facility] 12:37:36 23:59:00 Encounter Weld [id number] ity [facility] [id number] [facility] [id number] [facility] 801 Branch 2020-07-22 2020-07-22 Outpatient R RADIOLOGY [facility] [id number] Univers 13:00:00 13:00:00 ity of [facility] 2020-07-22 2020-07-22 Outpatient R RADIOLOGY [facility] [id number] Univers 00:00:00 00:00:00 ity [facility] 2020-07-22 2020-07-22 Orders Doctor SERINA [id number] 00:00:00 00:00:00 Only Unassigned, AYAH [id number] [place] [facility] [id number] 2020-07-22 2020-07-22 Orders Doctor SERINA [id number] Univers 00:00:00 00:00:00 Only Unassigned, AYAH [id number] ity of [place] [facility] [id number] [facility] [id number] [facility] 009 Branch 2020-07-20 2020-07-20 Outpatient R RADIOLOGY [facility] [id number] Univers 14:20:00 14:20:00 ity [facility] 2020-07-20 2020-07-20 Outpatient R RADIOLOGY [facility] [id number] Univers 00:00:00 00:00:00 ity [facility] 2020-07-15 2020-07-15 Outpatient STLMLC STLMLC [id number] Common 00:00:00 00:00:00 [facility] 2020-07-10 2020-07-10 Outpatient STLMLC STLMLC [id number] Common 00:00:00 00:00:00 [facility] 2020-04-21 2020-04-21 Outpatient [facility] [id number] Common 08:00:00 08:00:00 [facility] [address] [facility] 2020-04-10 2020-04-10 Outpatient [facility] [id number] Common 09:40:00 09:40:[address] [facility] 2019-10-17 2019-10-17 Outpatient [facility] [id number] Common 09:40:00 09:40:[address] [facility] 2019-09-19 2019-09-19 Outpatient [facility] [id number] Common 08:40:00 08:40:[address] [facility] 2018-04-09 2018-04-09 Outpatient [facility] [id number] Common 16:11:00 16:11:00 t Urgent Urgent Care S pirit Care [facility] 2018-04-09 2018-04-09 [facility] [id number] Common 14:10:00 14:10:00 t Urgent Urgent Care S pirit Care [facility] 2018-02-26 2018-02-26 Out[facility] [id number] Common 11:30:00 11:30:[address] [facility] 2018-02-19 2018-02-19 Outpatient [facility] [id number] Common 13:36:00 13:36:[address] [facility] 2018-01-25 2018-01-25 Outpatient [facility] [id number] Common 15:15:00 15:15:[address] [facility] 2018-01-18 2018-01-18 Outpatient [facility] [id number] Common 14:28:00 14:28:[address] [facility] 2018-01-16 2018-01-16 Outpatient [facility] [id number] Common 14:15:00 14:15:[address] [facility] Results Test Description Test Time Test Comments Results Result Comments Source SARS-CoV-2 (COVID-19) RNA [Presence] in Respiratory sp ecimen by 2021-02-19 17:17:30 TANYA with probe detection Test Item Value Reference Range Interpretation Comme nts SARS-CoV-2 (COVID-19) RNA [Presence] in Respiratory Not detected No t-Detected specimen by TANYA with probe detection (test code = 38456-5) Whether patient is employed in a healthcare setting (test code = 94632-8) Whether the patient has symptoms related to condition of interest (test code = 93637-7) Patient was hospitalized because of this condition (test code = 81532-0) Whether the patient was admitted to intensive care unit (ICU) for condition of interest (test code = 70028-0) Whether patient resides in a congregate care setting (test code = 11349-8) SARS-CoV-2 (COVID-19) RNA [Presence] in Respiratory specimen by TANYA with probe [id number] 10:17:31 Test Item Value Reference Range Interpretation Comments SARS-CoV-2 (COVID-19) RNA Not detected Not-Detected [Presence] in Respiratory specimen by TANYA with probe detection (test code = 02102-8) Whether patient is employed in a healthcare setting (test code = 78959-5) Whether the patient has symptoms related to condition of interest (test code = 00898-5) Patient was hospitalized because of this condition (test code = 56162-3) Whether the patient was admitted to intensive care unit (ICU) for condition of interest (test code = 50890-7) Whether patient resides in a congregate care setting (test code = 98078-0) SARS-CoV-2 (COVID-19) RNA [Presence] in Respiratory specimen by TANYA with probe [id number] 15:34:14 Test Item Value Reference Range Interpretation Comments SARS-CoV-2 (COVID-19) RNA Not detected Not-Detected [Presence] in Respiratory specimen by TANYA with probe detection (test code = 39936-4) Whether patient is employed in a healthcare setting (test code = 36586-0) Whether the patient has symptoms related to condition of interest (test code = 67419-7) Patient was hospitalized because of this condition (test code = 40027-8) Whether the patient was admitted to intensive care unit (ICU) for condition of interest (test code = 20357-2) Whether patient resides in a congregate care setting (test code = 15681-8) CT HEAD WO [id number] 19:06:33Impression: 1. ?No acute intracranial process.Exam: CT HEAD WO CONTRAST Clinical History: ?Walk in patient with written orders Technique:Thin section CT brain with mkultiplanar formats Comparison: NOneFindings: No evidence of intracranial hemorrhage, mass or midline shift.Sella, skull base are withinnormal limits. Craniocervical junction iswithin normal limits.Bone windows are within normal limits.[facility], Radiant Results Inft User - 07/22/2020 1:07 PM CSTExam: CT HEAD WO CONTRASTClinical History: Walk in patient with written ordersTechnique:Thin section CT brain with mkultiplanar formatsComparison: NOneFindings: No evidence of intracranial hemorrhage, mass or midline shift.Sella, skull base are within normal limits. Craniocervical junction iswithin normal limits.Bone windows are within normal limits.IMPRESSIONImpression:1. No acute intracranial process.[facility]
[2022-03-22 12:38] LABS: Absolute Lymphocytes (CBC) 1.3 K/uL (0.7-4.9); Lymphocytes % 14.2 % (15.3-44.8); MCV 92.8 fL (80-100); MPV 7.8 fL (7.6-11.3); RBC Red Blood Cell Count 3.77 M/uL (3.86-4.86)
[2022-03-22 12:40] LABS: Protime INR 1.09
[2022-03-22 12:53] LABS: Potassium 3.9 mmol/L (3.5-5.1); Troponin High Sensitivity 9.4 pg/mL (<58.9)
--- NOTE | 2022-03-22 13:00 | RAD REPORT ---
EXAM DESCRIPTION: RAD - Chest Single View - 03/22/2022 12:54 pm CLINICAL HISTORY: SOB Chest pain. COMPARISON: No comparisons FINDINGS: Portable technique limits examination quality. Mild interstitial pulmonary edema. The heart is moderately enlarged in size. Sternotomy wires are pre sent.Multi lead pacer/defibrillator device. IMPRESSION: Mild CHF.
--- NOTE | 2022-03-22 13:47 | RAD REPORT ---
EXAM DESCRIPTION: CT - Chest For Pe Angio - 03/22/2022 1:35 pm CLINICAL HISTORY: Chest pain. shortness of breath, elevated d-dimer COMPARISON: No comparisons TECHNIQUE: CT angiogram of the pulmonary arteries was performed with MIP. All CT scans are performed using dose optimization technique as appropriate and may include automated exposure control or mA/KV adjustment according to patient size. FINDINGS: No evidence of pulmonary thromboembolism. The pulmonary arterial tree appears enlarged. Aorta is suboptimally contrast opacified for full assessment. Cardiomegaly is present. Pacemaker is p resent. Emxr-ux-wixjpwpt ground-glass opacity is present in both lungs. No significant pericardial or pleural fluid. No concerning bony finding. IMPRESSION: No evidence of pulmonary thromboembolism. Pulmonary arterial hypertension is likely pres ent. Mild to moderate CHF suspected.
[2022-03-22] MEDS ORDERED: FUROSEMIDE 20 MG/ 2ML VIAL ONE (14:50)
[2022-03-22 17:16] VITALS: TEMP 97.2
[2022-03-22 17:23] VITALS: O2SAT 100
[2022-03-22 17:26] VITALS: BP 120/83
--- NOTE | 2022-03-23 07:22 | EKG ---
Test Date: 2022-03-22 Test Time: 12:09:40 Weaving Inspector: GEOFF MEASUREMENT RESULTS: Intervals: Rate: 76 NV: 190 QRSD: 104 QT: 406 QTc: 456 [place]era: P: 60 NV: 190 QRS: 30 T: 84 INTERPRETIVE STATEMENTS: Normal sinus rhythm T wave abnormality, consider lateral ischemia Abnormal ECG No previous ECG available for comparison Electronically Signed On 03-23-22 07:19:28 CDT by Sumit Anderson
--- NOTE | 2022-03-23 10:14 | ER ---
[facility] Name: Sydnie Zuniga Age: 72 yrs Sex: Female : 1950 Arrival Date: 03/22/2022 Time: 11:01 Bed Treatment Private MD: JOSÉ MIGUEL ABARCA Diagnosis: Unspecified combined systolic (congestive) and diastolic (congestive) heart failure Presentation: 03/22 11:27 Chief complaint: Patient states: about 2 weekends ago i ran a low grade fever then I iw felt better through the week, on that Monday i had a procedure on my right leg vein and I stated running fever of 102 , i did a COVID test and it was negative , but now I am really SOB on exertion, yesterday I could hear crackling in my lungs on both sides , has cough with deep breathing but non productive , was unable to be seen by her PCP , has not had fever since Monday. Coronavirus screen: Client presents with at least one sign or symptom that may indicate coronavirus-19. Ebola Screen: Patient negative for fever greater than or equal to 101.5 degrees Fahrenheit, and additional compatible Ebola Virus Disease symptoms Patient denies exposure to infectious person. Patient denies travel to an Ebola-affected area in the 21 days before illness onset. No symptoms or risks identified at this time. Initial Sepsis Screen: Does the patient meet any 2 criteria? No. Patient's initial sepsis screen is negative. Does the patient have a suspected source of infection? No. Patient's initial sepsis screen is negative. Risk Assessment: Do you want to hurt yourself or someone else? Patient reports no desire to harm self or others. Onset of symptoms was March 07, 2022. 11:27 Method Of Arrival: Ambulatory iw 11:27 Acuity: ALEXANDRU 3 iw Historical: - Allergies: 11:30 No Known Allergies; iw - Home Meds: 11:30 Xarelto 15 mg oral tab once daily [Active]; metoprolol succinate 50 mg oral Tb24 1 tab iw once daily [Active]; ferrous sulfate 325 mg (65 mg iron) Oral cpER daily [Active]; - PMHx: 11:30 mitral valve prolapse; Atrial Fib; iw - PSHx: 11:30 open heart surgery; cardiac ablation; iw 11:33 pacemaker; iw - Immunization history:: Adult Immunizations up to date. - Social history:: Smoking status: Patient/guardian denies using tobacco products. Screenin:59 Abuse screen: Denies threats or abuse. Nutritional screening: No deficits noted. bm7 Tuberculosis screening: No symptoms or risk factors identified. Fall Risk None identified. Assessment: 12:59 Reassessment: ELEVATED D-DIMER NOTIFIED ERP. bm7 13:46 Reassessment: Patient and/or family updated on plan of care and expected duration. Pain bm7 level reassessed. Patient is alert, oriented x 3, equal unlabored respirations, skin warm/dry/pink. 13:59 General: Appears in no apparent distress. comfortable, well groomed, well developed, bm7 Behavior is calm, cooperative, appropriate for age. Pain: Denies pain. Neuro: No deficits noted. Level of Consciousness is awake, alert, obeys commands, Oriented to person, place, time, situation. Cardiovascular: Reports shortness of breath, Denies chest pain, Rhythm is Chest pain is denied. Respiratory: Airway is patent Respiratory effort is even, unlabored, Respiratory pattern is regular, symmetrical, Breath sounds are clear bilaterally. GI: No deficits noted. No signs and/or symptoms were reported involving the gastrointestinal system. : No deficits noted. No signs and/or symptoms were reported regarding the genitourinary system. EENT: No deficits noted. No signs and/or symptoms were reported regarding the EENT system. Derm: No deficits noted. No signs and/or symptoms reported regarding the dermatologic system. Musculoskeletal: No deficits noted. No signs and/or symptoms reported regarding the musculoskeletal system. 14:33 Reassessment: Patient states symptoms have improved. bm7 Vital Signs: 11:27 BP 104 / 66; Pulse 75; Resp 16; Temp 97.2; Pulse Ox 98% on R/A; Weight 71.21 kg; Height iw 5 ft. 8 in. (172.72 cm); 13:46 BP 138 / 71; Pulse 74; Resp 16; Pulse Ox 100% on R/A; Pain 0/10; bm7 15:01 BP 120 / 83; Pulse 70; Resp 14; Pulse Ox 100% on R/A; Pain 0/10; bm7 11:27 Body Mass Index 23.87 (71.21 kg, 172.72 cm) ED Course: 11:01 Patient arrived in ED. mr 11:01 MARLEEN ABARCAA is Private Physician. mr 11:05 Atif Roque PA is PHCP. jm 11:05 Ted Rivera MD is Attending Physician. jmm 11:30 Triage completed. iw 11:32 Arm band placed on. iw 12:18 Initial lab(s) drawn, by me, sent to lab. Inserted saline lock: 20 gauge in left 3 antecubital area, using aseptic technique. Blood collected. 12:56 XRAY Chest (1 view) In Process Unspecified. EDMS 13:37 CT Chest For PE Angio In Process Unspecified. EDMS 13:38 Valeri Valles, RN is Primary Nurse. bm7 13:59 Patient has correct armband on for positive identification. Placed in gown. Bed in low bm7 position. Call light in reach. Side rails up X2. Client placed on continuous cardiac and pulse oximetry monitoring. NIBP monitoring applied. potline monitor on. Warm blanket given. 13:59 No provider procedures requiring assistance completed. bm7 14:56 Assisted to bathroom. bm7 15:10 intact, bleeding controlled, No redness/swelling at site. Pressure dressing applied. bm7 Administered Medications: 14:48 Drug: Lasix (furosemide) 20 mg Route: IVP; Site: left antecubital; bm7 15:02 Follow up: Response: No adverse reaction bm7 Medication: 13:59 VIS not applicable for this client. bm7 Outcome: 15:03 Discharge ordered by . jmm 15:10 Discharged to home ambulatory. bm7 15:10 Condition: good 15:10 Discharge instructions given to patient. 15:10 Patient left the ED. bm7 Signatures: Dispatcher [employer] EDMS Atif Roque PA PA Jenni Mohamud Ana Rasmussen, RN TIMBO [place] [id number] Valeri Valles, RN RN bm7
--- NOTE | 2022-03-23 10:14 | EDPHYS ---
Physician Documentation [facility] Name: Sydnie Zuniga Age: 72 yrs Sex: Female : 1950 Arrival Date: 03/22/2022 Time: 11:01 Bed Treatment Private MD: JOSÉ MIGUEL ABARCA ED Physician Ted Rivera HPI: 03/22 11:43 This 72 yrs old Female presents to ER via Ambulatory with complaints of Shortness Of jmm Breath. 11:43 The patient has shortness of breath at rest. Onset: The symptoms/episode began/occurred jmm gradually, 2 week(s) ago. 11:43 Duration: The symptoms are continuous. The patient's shortness of breath is aggravated jmm by exertion, light activity, is alleviated by nothing. Associated signs and symptoms: Pertinent positives: non-productive cough, fever. This is a 72-year-old female with history of atrial fibrillation that presents emerged department with complaints of progressively worsening shortness of breath over the past 2 weeks. Patient states 2 weeks ago she developed a fever which resolved after 1 night. Patient states that more recently she had a vein procedure performed on her right lower leg. Patient states later that evening she developed a fever again. Patient states she took a home COVID test which were negative. Historical: - Allergies: 11:30 No Known Allergies; iw - Home Meds: 11:30 Xarelto 15 mg oral tab once daily [Active]; metoprolol succinate 50 mg oral Tb24 1 tab iw once daily [Active]; ferrous sulfate 325 mg (65 mg iron) Oral cpER daily [Active]; - PMHx: 11:30 mitral valve prolapse; Atrial Fib; iw - PSHx: 11:30 open heart surgery; cardiac ablation; iw 11:33 pacemaker; iw - Immunization history:: Adult Immunizations up to date. - Social history:: Smoking status: Patient/guardian denies using tobacco products. ROS: 11:43 Constitutional: Positive for body aches, chills, malaise. jmm 11:43 Respiratory: Positive for shortness of breath. 11:43 All other systems are negative. Exam: 11:43 Constitutional: This is a well developed, well nourished patient who is awake, alert, jmm and in no acute distress. Head/Face: atraumatic. Eyes: EOMI, no conjunctival erythema appreciated ENT: Moist Mucus Membranes Neck: Trachea midline, Supple Chest/axilla: Normal chest wall appearance and motion. Cardiovascular: Regular rate and rhythm. No edema appreciated 11:43 Abdomen/GI: Non distended Back: Normal ROM Skin: General appearance color normal 11:43 Respiratory: Breath sounds: rales, that are mild, are heard in the left posterior lower lobe and right posterior middle lobe. 11:43 Musculoskeletal/extremity: Mild edema noted to the right lower leg. 11:43 Skin: Appearance: Color: normal in color. 11:43 Neuro: Orientation: is normal, Mentation: is normal, Memory: is normal. 11:43 Psych: Behavior/mood is pleasant, cooperative. Vital Signs: 11:27 BP 104 / 66; Pulse 75; Resp 16; Temp 97.2; Pulse Ox 98% on R/A; Weight 71.21 kg; Height iw 5 ft. 8 in. (172.72 cm); 13:46 BP 138 / 71; Pulse 74; Resp 16; Pulse Ox 100% on R/A; Pain 0/10; bm7 15:01 BP 120 / 83; Pulse 70; Resp 14; Pulse Ox 100% on R/A; Pain 0/10; bm7 11:27 Body Mass Index 23.87 (71.21 kg, 172.72 cm) iw MDM: 11:43 Patient medically screened. [facility] 14:22 Data reviewed: vital signs, nurses notes. Counseling: I had a detailed discussion with alisa the patient and/or guardian regarding: the historical points, exam findings, and any diagnostic results supporting the discharge/admit diagnosis, the need for outpatient follow up, to return to the emergency department if symptoms worsen or persist or if there are any questions or concerns that arise at home. 03/22 11:43 Order name: Basic Metabolic Panel; Complete Time: 13:03 [facility] 03/22 11:43 Order name: CBC with Diff; Complete Time: 12:48 [facility] 03/22 11:43 Order name: NT PRO-BNP; Complete Time: 13:03 [facility] 03/22 11:43 Order name: PT-INR; Complete Time: 13:03 [facility] 03/22 11:43 Order name: Troponin HS; Complete Time: 13:03 [facility] 03/22 11:43 Order name: XRAY Chest (1 view); Complete Time: 13:03 [facility] 03/22 11:43 Order name: EKG; Complete Time: 11:44 [facility] 03/22 11:43 Order name: Cardiac monitoring; Complete Time: 12:30 [facility] 03/22 11:44 Order name: SARS-COV-2 RT PCR (Document "Date of Onset" if Symptomatic); Complete Time: [facility] 13:31 03/22 11:44 Order name: Influenza Screen (a \\T\\ B); Complete Time: 13:31 [facility] 03/22 12:34 Order name: D-Dimer; Complete Time: 13:03 [facility] 03/22 13:03 Order name: CT Chest For PE Angio; Complete Time: 13:55 [facility] 03/22 11:43 Order name: EKG - Nurse/Tech; Complete Time: 12:19 [facility] 03/22 11:43 Order name: IV Saline Lock; Complete Time: 12:24 [facility] 03/22 11:43 Order name: Labs collected and sent; Complete Time: 12:24 [facility] 03/22 11:43 Order name: O2 Per Protocol; Complete Time: 12:24 [facility] 03/22 11:43 Order name: O2 Sat Monitoring; Complete Time: 12:30 [facility] Administered Medications: 14:48 Drug: Lasix (furosemide) 20 mg Route: IVP; Site: left antecubital; [facility] 15:02 Follow up: Response: No adverse reaction [facility] Disposition Summary: 03/22/22 15:03 Discharge Ordered Location: Home [facility] Condition: Stable [facility] Diagnosis - Unspecified combined systolic (congestive) and diastolic (congestive) heart failure [facility] Followup: [facility] - With: Private Physician - When: 1 - 2 days - Reason: Recheck today's complaints, Continuance of care, Re-evaluation by your physician Discharge Instructions: - Discharge Summary Sheet [facility] - Heart Failure, Diagnosis [facility] Forms: - Medication Reconciliation Form [facility] - Thank You Letter [facility] - Antibiotic Education [facility] - Prescription Opioid Use [facility] Signatures: Dispatcher [employer] EDMS Atif Roque PA PA jm Ana Rasmussen, RN TIMBO iw Valeri Valles RN RN bm7 Corrections: (The following items were deleted from the chart) 12:33 11:44 D-DIMER+[email or web address].LAB.BRZ ordered. EDMS EDMS
== END 2022-03-22 15:10 | disposition home or self-care (01) ==
LOC: ER 10:59
DX: I50.40 Unspecified combined systolic (congestive) and diastolic (congestive) heart failure (principal); I48.91 Unspecified atrial fibrillation; I34.1 Nonrheumatic mitral (valve) prolapse; Z95.0 Presence of cardiac pacemaker; Z20.822 Contact with and (suspected) exposure to COVID-19; Z79.01 Long term (current) use of anticoagulants
CPT/HCPCS: 93005; 85025; 80048; 36415; 85610; 85379; 84484; 83880; 87804 ×2; 71275; 71045; 96374; 99284; U0003; Q9967; J1940